=== PATIENT | male | born 1960 | race Caucasian/White ===

== ENCOUNTER 2024-09-02 22:03 | Inpatient (IN) | payer MEDICARE ==
[~2024-09-02] VITALS: Ht 185.4 cm; Wt 107.0 kg
[2024-09-02 22:26] LABS: BASOPHILS # (AUTO) 0.1 (0.0-0.1); BASOPHILS % 0.6 % (0.0-1.0); EOSINOPHILS # (AUTO) 0.3 (0.0-0.4); EOSINOPHILS % 1.9 % (0.0-6.0); HEMATOCRIT 48.7 % (38.2-49.6); LYMPHOCYTES # (AUTO) 1.9 (1.0-3.2); LYMPHOCYTES % 14.3 % (18.0-39.1); MEAN CORPUSCULAR HEMOGLOBIN 31.8 pg (28-32); MEAN CORPUSCULAR HGB CONC 34.9 g/dL (31-35); MONOCYTES # (AUTO) 0.8 (0.2-0.8); MONOCYTES % 6.3 % (4.4-11.3); NEUTROPHILS # (AUTO) 10.3 (2.1-6.9); NEUTROPHILS % 76.5 % (38.7-80.0); PLATELET COUNT 310 x10e3/uL (140-360); RED BLOOD COUNT 5.35 x10e6/uL (4.3-5.7); RED CELL DISTRIBUTION WIDTH 13.4 % (11.7-14.4); WHITE BLOOD COUNT 13.41 x10e3/uL (4.8-10.8)
[2024-09-02 22:44] LABS: INR 0.94; PROTHROMBIN TIME 13.4 seconds (11.9-14.5)
[2024-09-02 22:45] LABS: PARTIAL THROMBOPLASTIN TIME 33.2 seconds (23.8-35.5)
[2024-09-02 22:54] LABS: ALBUMIN 4.1 g/dL (3.5-5.0); ALBUMIN/GLOBULIN RATIO 1.1 (0.8-2.0); ANION GAP 18.4 mmol/L (8-16); CALCIUM 9.9 mg/dL (8.4-10.2); CREATININE, SERUM 2.25 mg/dL (0.72-1.25); POTASSIUM 4.4 mmol/L (3.5-5.1); TOTAL PROTEIN 7.9 g/dL (6.5-8.1)
[2024-09-02] MEDS ORDERED: Morphine 4mg INJECTION 4 MG/ML INJ IV PRN (23:30)
[2024-09-02] MEDS ORDERED: ONDANSETRON HCL INJ 2MG/ML 2ML 2 MG/ML VIAL IV PRN (23:30)
[2024-09-03] VITALS (11 sets, daily range): BP systolic 130–153; BP diastolic 72–90; PULSE 82–97; RESP 17–20; TEMP 97.5–98.4; O2SAT 94–100
[2024-09-03] MEDS: SODIUM CHLORIDE 0.9% 1000ML 1,000 ML IV SCH (00:41)
[2024-09-03 07:18] LABS: BASOPHILS # (AUTO) 0.1 (0.0-0.1); BASOPHILS % 0.6 % (0.0-1.0); EOSINOPHILS # (AUTO) 0.2 (0.0-0.4); EOSINOPHILS % 1.7 % (0.0-6.0); HEMATOCRIT 47.1 % (38.2-49.6); HEMOGLOBIN 15.9 g/dL (14.0-18.0); LYMPHOCYTES # (AUTO) 2.2 (1.0-3.2); LYMPHOCYTES % 15.8 % (18.0-39.1); MEAN CORPUSCULAR HEMOGLOBIN 31.7 pg (28-32); MEAN CORPUSCULAR HGB CONC 33.8 g/dL (31-35); MONOCYTES % 6.8 % (4.4-11.3); NEUTROPHILS # (AUTO) 10.4 (2.1-6.9); NEUTROPHILS % 74.6 % (38.7-80.0); PLATELET COUNT 272 x10e3/uL (140-360); RED BLOOD COUNT 5.01 x10e6/uL (4.3-5.7); RED CELL DISTRIBUTION WIDTH 13.2 % (11.7-14.4); WHITE BLOOD COUNT 13.98 x10e3/uL (4.8-10.8)
[2024-09-03 07:30] LABS: ALBUMIN 3.8 g/dL (3.5-5.0); ALBUMIN/GLOBULIN RATIO 1.2 (0.8-2.0); BILIRUBIN,TOTAL 1.1 mg/dL (0.2-1.2); CALCIUM 9.4 mg/dL (8.4-10.2); CREATININE, SERUM 1.74 mg/dL (0.72-1.25); TOTAL PROTEIN 7.1 g/dL (6.5-8.1)
[2024-09-03] MEDS ORDERED: METFORMIN HCL500 M1 PO (09:51)
[2024-09-03] MEDS ORDERED: VIAGRA50 MG PO (09:58)
[2024-09-03] MEDS ORDERED: LOSARTAN-HCTZ1 EAC1 PO (09:58)
[2024-09-03] MEDS ORDERED: ALLOPURINOL200 MG PO (09:58)
[2024-09-03] MEDS ORDERED: METOPROLOL SUCC25 MG PO (09:58)
[2024-09-03] MEDS ORDERED: SIMVASTATIN40 MG PO (09:58)
[2024-09-03] MEDS ORDERED: FLOMAX0.4 MG PO (09:58)
[2024-09-03] MEDS ORDERED: AMLODIPINE BESY10 MG PO (09:58)
[2024-09-03] MEDS ORDERED: MAGNESIUM HYDROXIDE 30 ML UDC PO PRN (10:00)
[2024-09-03] MEDS ORDERED: DEXTROSE 50% SYRINGE 50 ML IV PRN (10:00)
[2024-09-03] MEDS ORDERED: ACETAMINOPHEN 325 MG TAB PO PRN (10:00)
[2024-09-03] MEDS ORDERED: HYDRALAZINE HCL 20 MG/ML VIAL IV PRN (10:00)
[2024-09-03] MEDS: INSULIN LISPRO 100 UNIT/1 ML 3ML VIAL SQ SCH (12:45)
[2024-09-03] MEDS: SENNA-S TABLET PO SCH (12:47)
[2024-09-03] MEDS: SIMVASTATIN 40 MG TAB PO SCH (20:46)
[2024-09-03] MEDS: TAMSULOSIN HCL 0.4 MG CAP PO SCH (20:46)
[2024-09-03] MEDS: INSULIN GLARGINE 100 UNITS/ML VIAL SQ SCH (20:52)
[2024-09-04] VITALS (10 sets, daily range): BP systolic 138–165; BP diastolic 84–95; PULSE 74–86; RESP 18–20; TEMP 97.8–98.4; O2SAT 98–100
[2024-09-04 04:51] LABS: BASOPHILS # (AUTO) 0.1 (0.0-0.1); BASOPHILS % 0.5 % (0.0-1.0); EOSINOPHILS # (AUTO) 0.3 (0.0-0.4); EOSINOPHILS % 2.8 % (0.0-6.0); HEMATOCRIT 42.2 % (38.2-49.6); HEMOGLOBIN 14.3 g/dL (14.0-18.0); LYMPHOCYTES # (AUTO) 2.4 (1.0-3.2); MEAN CORPUSCULAR HEMOGLOBIN 31.6 pg (28-32); MEAN CORPUSCULAR HGB CONC 33.9 g/dL (31-35); MEAN CORPUSCULAR VOLUME 93.4 fL (81-99); MONOCYTES # (AUTO) 0.8 (0.2-0.8); MONOCYTES % 7.1 % (4.4-11.3); NEUTROPHILS # (AUTO) 7.8 (2.1-6.9); NEUTROPHILS % 68.2 % (38.7-80.0); PLATELET COUNT 254 x10e3/uL (140-360); RED BLOOD COUNT 4.52 x10e6/uL (4.3-5.7); RED CELL DISTRIBUTION WIDTH 13.4 % (11.7-14.4); WHITE BLOOD COUNT 11.42 x10e3/uL (4.8-10.8)
[2024-09-04 05:14] LABS: ANION GAP 15.9 mmol/L (8-16); CALCIUM 8.9 mg/dL (8.4-10.2); CREATININE, SERUM 1.41 mg/dL (0.72-1.25); POTASSIUM 3.9 mmol/L (3.5-5.1)
[2024-09-04] MEDS: METOPROLOL SUCCINATE 25 MG TAB XL PO SCH (07:55)
[2024-09-04] MEDS: ALLOPURINOL 100 MG TAB PO SCH (07:55)
[2024-09-04] MEDS: AMLODIPINE BESYLATE 10 MG TAB PO SCH (07:56)
[2024-09-04] MEDS: HYDROCODONE/APAP 10MG-325MG TAB PO PRN (08:02)
[2024-09-05] VITALS (7 sets, daily range): BP systolic 139–166; BP diastolic 88–98; PULSE 70–74; RESP 16–20; TEMP 97.8–97.9; O2SAT 99–100
[2024-09-05 05:45] LABS: ANION GAP 15.2 mmol/L (8-16); CALCIUM 8.8 mg/dL (8.4-10.2); CREATININE, SERUM 1.28 mg/dL (0.72-1.25); POTASSIUM 4.2 mmol/L (3.5-5.1)
[2024-09-06] VITALS (10 sets, daily range): BP systolic 149–173; BP diastolic 88–97; PULSE 70–85; RESP 17–20; TEMP 97.8–98.6; O2SAT 97–100
[2024-09-07] VITALS: BP 158/97; PULSE 77; RESP 18; TEMP 98; O2SAT 98
[2024-09-07 04:00] VITALS: BP 170/84; PULSE 79; RESP 18; TEMP 97.9; O2SAT 100
[2024-09-07 05:18] LABS: BASOPHILS # (AUTO) 0.1 (0.0-0.1); BASOPHILS % 0.7 % (0.0-1.0); EOSINOPHILS # (AUTO) 0.2 (0.0-0.4); EOSINOPHILS % 2.5 % (0.0-6.0); HEMATOCRIT 39.1 % (38.2-49.6); HEMOGLOBIN 13.3 g/dL (14.0-18.0); LYMPHOCYTES # (AUTO) 1.6 (1.0-3.2); LYMPHOCYTES % 19.5 % (18.0-39.1); MEAN CORPUSCULAR HEMOGLOBIN 31.7 pg (28-32); MEAN CORPUSCULAR VOLUME 93.1 fL (81-99); MONOCYTES # (AUTO) 0.5 (0.2-0.8); MONOCYTES % 6.6 % (4.4-11.3); NEUTROPHILS # (AUTO) 5.7 (2.1-6.9); NEUTROPHILS % 70.3 % (38.7-80.0); PLATELET COUNT 305 x10e3/uL (140-360); RED CELL DISTRIBUTION WIDTH 13.1 % (11.7-14.4); WHITE BLOOD COUNT 8.14 x10e3/uL (4.8-10.8)
[2024-09-07 05:45] LABS: ANION GAP 15.7 mmol/L (8-16); CALCIUM 8.9 mg/dL (8.4-10.2); CREATININE, SERUM 1.21 mg/dL (0.72-1.25); POTASSIUM 3.7 mmol/L (3.5-5.1)
[2024-09-07 08:11] VITALS: BP 167/97; PULSE 87; RESP 18; TEMP 98.1; O2SAT 99
[2024-09-07 09:42] VITALS: BP 167/97; PULSE 87; RESP 18; TEMP 98.1; O2SAT 99
[2024-09-07 11:28] VITALS: BP 147/94; PULSE 80; RESP 18; TEMP 98.4; O2SAT 98
== END 2024-09-07 12:29 | disposition home or self-care (01) | DRG 920 ==
LOC: ER 22:08 → ERHOLD 23:30 → MED/SURG 09-03 01:32
PROVIDERS: ADMIT Internal Medicine; ATTEND Internal Medicine
PROC: 0T9B70Z Drainage of Bladder with Drainage Device, Via Natural or Artificial Opening (ICD-10-PCS; principal; 2024-09-02)
DX: N99.820 Postprocedural hemorrhage of a genitourinary system organ or structure following a genitourinary system procedure (principal); N13.8 Other obstructive and reflux uropathy; N17.9 Acute kidney failure, unspecified; N40.1 Benign prostatic hyperplasia with lower urinary tract symptoms; N30.91 Cystitis, unspecified with hematuria; R31.0 Gross hematuria; R33.8 Other retention of urine; I10 Essential (primary) hypertension; E78.5 Hyperlipidemia, unspecified; M19.90 Unspecified osteoarthritis, unspecified site; Z96.0 Presence of urogenital implants
CPT/HCPCS: 36415; 51703; 80048; 80053; 82948; 85025; 85610; 85730; 87086; 94799; 96372; 99284; J0692; J1815; J7030